=== PATIENT | male | born 1965 | race African-American/Black ===

== ENCOUNTER 2017-10-30 19:57 | Inpatient (IN) | payer SELFPAY ==
[~2017-10-30 19:57] MED LIST: ISOVUE-370 76%-LOCM 1 ML ONE
[2017-10-30] MEDS ORDERED: Succinylcholine Chloride 20 MG/ML 10 ml SYRINGE FS ONE (20:06)
[2017-10-30 20:24] LABS: Hemoglobin 15.1 g/dL (14.0-18.0); Mean Corpuscular Hemoglobin 29.4 pg (27.0-31.0); Mean Corpuscular Volume 86.6 fl (80.0-94.0); Mean Platelet Volume 6.8 fL (7.4-10.4); Platelet Count 241 thou/uL (130-400); Red Blood Cell (RBC) Count 5.14 mill/uL (4.70-6.10); White Blood Cell (WBC) Count 5.2 thou/uL (4.8-10.8)
[2017-10-30] MEDS ORDERED: Propofol 1,000 MG/100 ML VIAL IV ONE ×2 (20:25→23:49)
[2017-10-30 20:34] LABS: Prothrombin Time 13.7 SEC (12.0-14.7)
[2017-10-30 20:37] LABS: Lymphocytes 42 % (21-51); MDiff Complete? YES; Monocytes 4 % (0-10); Neutrophil 32 % (42-75); PLT Morphology Comment Appears Adequate; RBC Morphology Normal; Reactive Lymphocytes 20 % (0-10)
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
[2017-10-30 20:45] LABS: ALT (SGPT) 58 U/L (8-55); AST (SGOT) 86 U/L (5-34); Albumin 4.4 g/dL (3.5-5.0); Alkaline Phosphatase 82 U/L (40-150); Anion Gap 16 mmol/L (10-20); BUN (Urea Nitrogen) 6 mg/dL (8.9-20.6); Bilirubin, Total 0.4 mg/dL (0.2-1.2); Calc. Creatinine Clearance 0 mL/min (70-130); Calcium 8.9 mg/dL (7.8-10.44); Carbon Dioxide 20 mmol/L (22-29); Chloride 101 mmol/L (98-107); Estimated GFR-MDRD Greater than 90; Globulin 3.6 g/dL (2.4-3.5); Glucose 92 mg/dL (70-105); Lipase 26 U/L (8-78); Potassium 4.2 mmol/L (3.5-5.1); Sodium 133 mmol/L (136-145)
[2017-10-30 20:48] LABS: CKMB 0.9 ng/mL (0-6.6); Troponin I Less than 0.010 ng/mL (< 0.028)
[2017-10-30 20:49] LABS: Acetaminophen Less than 6.0 mcg/mL (10.0-30.0); Alcohol 355 mg/dL (Less than 10); Salicylate Less than 8.0 mg/dL (15.0-30.0)
[2017-10-30] MEDS ORDERED: Fentanyl 100 MCG/2 ML VIAL ONE ×2 (21:09→22:50)
[2017-10-30 21:25] LABS: Bilirubin Negative (Negative); Blood, Urine Trace (Negative); Clarity CLEAR (Clear); Glucose, Urine (Dipstick) Negative (Negative); Leukocyte Negative (Negative); Nitrite Negative (Negative); Protein, Urine (Dipstick) Negative (Neg-Trace); Specific Gravity, Urine 1.008 (1.002-1.036); Urobilinogen 0.2 mg/dL (0.2-1.0)
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
[2017-10-30 21:27] LABS: Actual Bicarbonate (HCO3a) 19.6 mEq/L (22-26); Base Excess (BEa) -5.6 mEq/L (0 (+/-) 2.5); CO2 Tension 37.5 mmHg (35.0-45.0); Hematocrit-ABG 47.6 % (42.0-52.0); Hemoglobin (Hb) 14.4 g/dL (14.0-18.0); pH, Arterial 7.34 (7.35-7.45)
[2017-10-30 21:27] LABS: Bacteria/HPF None Seen HPF (None Seen); Hyaline Casts/LPF 0-3 HYALINE CAST LPF (0-3 Hyaline); Pathc Cast-AUWi Flag 0.43 (0-2.49); RBC/HPF 0-3 HPF (0-3); Squamous Epithelial None Seen HPF (0-3); WBC/HPF None Seen HPF (0-3)
[2017-10-30 21:28] LABS: Analyzer IN Cardio ER; Calcium, Ionized 1.1 mmol/L (1.12-1.30); Puncture Site LRA
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
[2017-10-30 21:29] LABS: ALV-art Gradient 55.125 (0-20)
[2017-10-30 21:32] LABS: Amphetamine Not Detected (NotDetected); Barbiturates Screen Not Detected (NotDetected); Benzodiazepine Screen Not Detected (NotDetected); Cocaine Metabolite Screen Not Detected (NotDetected); Medtox Control Line Valid? VALID (VALID); Medtox Reader # READER 1; Methadone Not Detected (NotDetected); Methamphetamine Not Detected (NotDetected); Opiate Screen Not Detected (NotDetected); Oxycodone Screen Not Detected (NotDetected); Phencyclidine (PCP) Not Detected (NotDetected); THC/Cannabinoid Screen Not Detected (NotDetected); Tricyclic Screen Not Detected (NotDetected)
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
[2017-10-30] MEDS ORDERED: Adacel (T-DAP) 0.5 ML VIAL ONE (22:18)
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
[2017-10-31] MEDS: Sodium Chloride 0.9% 1,000 ML IV SCH ×3 (00:45→18:46)
[2017-10-31] MEDS ORDERED: DISCONTINUE PREVIOUS NARCOTIC PAIN MEDICATIONS AND BENZODIAZEPINES FS SCH ×2 (00:54→01:25)
[2017-10-31] MEDS ORDERED: Propofol 1,000 MG/100 ML VIAL IV PRN (00:54)
[2017-10-31] MEDS ORDERED: Lorazepam 2 MG/ML VIAL SLOW IVP PRN ×2 (00:54→01:25)
[2017-10-31] MEDS ORDERED: Morphine 2 MG/ML SYRINGE SLOW IVP PRN ×2 (00:54→01:25)
[2017-10-31] MEDS ORDERED: fentaNYL Citrate/PF 2,000 MCG in Sodium Chloride 0.9% 60 ML IV SCH ×2 (00:54→01:25)
[2017-10-31] MEDS ORDERED: Morphine 4 MG/ML VIAL SLOW IVP PRN ×2 (00:55→01:25)
[2017-10-31] MEDS ORDERED: Ondansetron HCl/PF 4 MG/2 ML Vial IVP PRN (01:13)
[2017-10-31] MEDS ORDERED: Ventilator Sedation Protocol 1 EACH FS SCH (01:13)
[2017-10-31] MEDS ORDERED: Ondansetron ODT 4 MG TAB PO PRN (01:13)
[2017-10-31] MEDS ORDERED: hydrALAZINE 20 MG/ML VIAL SLOW IVP PRN (01:13)
[2017-10-31] MEDS ORDERED: Dextrose 50% Abboject 50 ML SYRINGE SLOW IVP PRN (01:13)
[2017-10-31] MEDS ORDERED: Dextrose 5% in Water 1,000 ML IV PRN (01:13)
[2017-10-31 01:16] VITALS: BMI 27.3
[2017-10-31] MEDS: Propofol 1,000 MG/100 ML VIAL IV PRN ×4 (02:12→09:46)
[2017-10-31 04:17] LABS: #Lymphocytes 2.1 thou/uL (1.20-3.40); #Monocytes 0.5 thou/uL (0.11-0.59); #Neutrophils 2.8 thou/uL (1.40-6.50); %Basophils 0.5 % (0.0-1.0); %Eosinophils 0.6 % (0.0-10.0); %Lymphocytes 37.8 % (21.0-51.0); %Monocytes 9.3 % (0.0-10.0); %Neutrophils 51.7 % (42.0-75.0); Hemoglobin 12.3 g/dL (14.0-18.0); Mean Corpuscular Hemoglobin 29.6 pg (27.0-31.0); Platelet Count 191 thou/uL (130-400); RBC Distribution Width 12.1 % (11.5-14.5); Red Blood Cell (RBC) Count 4.15 mill/uL (4.70-6.10); White Blood Cell (WBC) Count 5.5 thou/uL (4.8-10.8)
[2017-10-31 04:36] LABS: Anion Gap 13 mmol/L (10-20); BUN (Urea Nitrogen) 4 mg/dL (8.9-20.6); Calc. Creatinine Clearance 161 mL/min (70-130); Calcium 7.1 mg/dL (7.8-10.44); Carbon Dioxide 18 mmol/L (22-29); Chloride 111 mmol/L (98-107); Estimated GFR-MDRD Greater than 90; Glucose 78 mg/dL (70-105); Potassium 3.8 mmol/L (3.5-5.1); Sodium 138 mmol/L (136-145)
[2017-10-31 07:32] VITALS: BP 119/76
[2017-10-31 08:51] LABS: Actual Bicarbonate (HCO3a) 18.3 mEq/L (22-26); Base Excess (BEa) -7.4 mEq/L (0 (+/-) 2.5); CO2 Tension 37.4 mmHg (35.0-45.0); Hematocrit-ABG 38.4 % (42.0-52.0); O2 Tension (PaO2) 181.4 mmHg (80.0-100.0); pH, Arterial 7.31 (7.35-7.45)
[2017-10-31 08:52] LABS: Calcium, Ionized 1.1 mmol/L (1.12-1.30); Hemoglobin (Hb) 12.2 g/dL (14.0-18.0)
[2017-10-31 08:53] LABS: Puncture Site RRA
--- NOTE | 2017-10-31 09:20 | RAD ---
PORTABLE CHEST: Date: 10/31/17 PROVIDED CLINICAL HISTORY: Status post intubation. FINDINGS: Comparison made with the study dated 10/30/17. Cardiac and mediastinal silhouette is unchanged in appearance. Endotracheal tube and enteric catheter are again noted in similar positions. No focal consolidation is evident. The supine nature of the st udy limits evaluation for pleural fluid and pneumothorax, without evidence for such. IMPRESSION: Stable radiographic appearance of the chest. POS: [facility]
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
[2017-10-31] MEDS: Acetaminophen 500 MG TAB PO PRN ×2 (12:39→19:54)
[2017-11-01] MEDS: Acetaminophen 500 MG TAB PO PRN (08:38)
[2017-11-01] MEDS ORDERED: Cyanocobalamin (Vitamin B-12) 1,000 MCG TAB PO SCH (09:00)
[2017-11-01] MEDS ORDERED: Folic Acid 1 MG TAB PO SCH (09:00)
[2017-11-01] MEDS ORDERED: Oxazepam 10 MG CAP PO SCH (09:00)
[2017-11-01] MEDS ORDERED: Multivitamin W/ Minerals 1 TAB PO SCH (09:00)
[2017-11-01 12:51] VITALS: TEMP 97.3
== END 2017-11-01 13:17 | disposition home or self-care (01) | DRG 208 ==
LOC: ERS 19:57 → CCU 10-31 00:46
PROVIDERS: ADMIT Surgery; ATTEND Surgery
PROC: 5A1935Z Respiratory Ventilation, Less than 24 Consecutive Hours (ICD-10-PCS; principal; 2017-10-31)
DX: J96.01 Acute respiratory failure with hypoxia (principal); F10.129 Alcohol abuse with intoxication, unspecified; Y04.2XXA Assault by strike against or bumped into by another person, initial encounter; S01.01XA Laceration without foreign body of scalp, initial encounter; T41.295A Adverse effect of other general anesthetics, initial encounter; Y92.538 Other ambulatory health services establishments as the place of occurrence of the external cause
CPT/HCPCS: 31500; 36415; 36416; 51702; 70450; 71045; 71260; 72125; 74177; 80048; 80053; 80306; 80307; 81003; 81015; 82553; 82805; 83690; 84484; 85025; 85610; 85730; 86850; 86900; 86901; 90471; 90715; 93005; 94002; 94003; 94640; 96365; 96366; 96375; 96376; 99292; G0390; J2405; J2704; J3010; J7620

== ENCOUNTER 2019-04-23 01:48 | Emergency (ER) | payer SELFPAY ==
[2019-04-23 02:29] LABS: Bilirubin Negative (Negative); Blood, Urine Negative (Negative); Clarity Clear (Clear); Glucose, Urine (Dipstick) Normal (Negative); Leukocyte Negative Leu/uL (Negative); Nitrite Negative (Negative); Protein, Urine (Dipstick) Negative (Neg-Trace); Urobilinogen Normal mg/dL (Less than 2)
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
== END 2019-04-23 03:49 | disposition home or self-care (01) ==
LOC: ERS 01:48
DX: M79.601 Pain in right arm (principal); F10.129 Alcohol abuse with intoxication, unspecified
CPT/HCPCS: 81003